=== PATIENT | female | born 1985 | race Caucasian/White ===

== ENCOUNTER 2024-01-13 09:02 | Day surgery (SDC) | payer MEDICAID ==
[~2024-01-13 09:02] MED LIST: Dexamethasone 4 MG/ML SDV ONE; Glycopyrrolate 0.2 MG/ML 5 ML MDV ONE; Neostigmine Methylsulfate 10 MG/10 ML MDV ONE; Ondansetron 4 MG/2 ML SDV ONE; Propofol 200 MG/20 ML SDV ONE; Rocuronium 50 MG/5 ML Vial ONE; Succinylcholine 200 MG/10 ML MDV ONE; fentaNYL 250 MCG/5 ML SDV ONE
[2024-01-13 09:43] LABS: ALANINE AMINOTRANSFERASE,ALT 62 U/L (12-78); ALBUMIN 3.8 g/dL (3.4-5.0); ALKALINE PHOSPHATASE 87 U/L (46-116); ANION GAP 13.6 mmol/L (5.0-14.0); ASPARTATE AMNIOTRANSFERASE,AST 28 U/L (15-37); BILIRUBIN TOTAL 0.5 mg/dL (0.2-1.0); BLOOD UREA NITROGEN,BUN 13 mg/dL (7-18); CALCIUM 9.3 mg/dL (8.5-10.1); CARBON DIOXIDE,CO2 29 mmol/L (21-32); CHLORIDE,CL 100 mmol/L (100-108); CREATININE 0.9 mg/dL (0.6-1.0); EST CRCL DRUG DOSING (CG) 77.79 mL/min; ESTIMATED GFR 83 mL/min (>60); GLUCOSE RANDOM 107 mg/dL (74-106); POTASSIUM,K 3.6 mmol/L (3.6-5.2); PROTEIN TOTAL,TP 7.6 g/dL (6.4-8.2); SODIUM,NA 139 mmol/L (140-148)
[2024-01-13] MEDS: Nozin Nasal Sanitizer NASBOTH ONE (09:45)
[2024-01-13] MEDS: Lactated Ringers 1,000 ML IV SCH (10:11)
[2024-01-13] MEDS ORDERED: Midazolam 1 MG/ML 2 ML SDV ONE (11:22)
[2024-01-13] MEDS: ceFAZolin 2 GM in Premix Bag 1 BAG IV ONE (11:30)
[2024-01-13] MEDS ORDERED: fentaNYL 250 MCG/5 ML SDV ONE ×2 (12:24→13:26)
[2024-01-13] MEDS: Bupivacaine 0.5% 50 ML MDV ONE (12:46)
[2024-01-13] MEDS ORDERED: hydrALAZINE 20 MG/ML SDV ONE (13:09)
[2024-01-13] MEDS ORDERED: Sodium Chloride 0.9% 10 ML ONE (13:09)
[2024-01-13] MEDS ORDERED: Lactated Ringers 1,000 ML ONE (13:17)
[2024-01-13] MEDS: Acetaminophen/oxyCODONE 325-5 MG Tab PO PRN (14:38)
== END 2024-01-13 15:33 | disposition home or self-care (01) ==
LOC: JP.SDS 09:02
PROVIDERS: ATTEND Specialist
DX: S83.282A Other tear of lateral meniscus, current injury, left knee, initial encounter (principal); M94.262 Chondromalacia, left knee; E66.9 Obesity, unspecified
CPT/HCPCS: 29881; 36415; 80053; 84703; 85027; A9270; C1713; C1769; J0330; J0360; J0665; J0690; J1100; J2250; J2405; J2704; J2710; J3010; J3490; J7120

== ENCOUNTER 2025-04-07 13:42 | Emergency (ER) | payer MEDICAID ==
[2025-04-07 14:10] LABS: BASOPHILS ABSOLUTE AUTO 0.16 K/uL (0.00-0.10); BASOPHILS PERCENT AUTO 1.5 % (0.1-1.3); EOSINOPHILS ABSOLUTE AUTO 1.28 K/uL (0.00-0.40); EOSINOPHILS PERCENT AUTO 12.4 % (0.0-5.4); IMMATURE GRAN ABSOLUTE AUTO 0.04 K/uL (0.00-0.23); IMMATURE GRAN PERCENT AUTO 0.4 % (0.0-0.7); LYMPHOCYTES ABSOLUTE AUTO 3.47 K/uL (0.8-3.3); LYMPHOCYTES PERCENT AUTO 33.5 % (11.4-47.7); MONOCYTES ABSOLUTE AUTO 0.63 K/uL (0.20-0.90); MONOCYTES PERCENT AUTO 6.1 % (3.3-12.6); NEUTROPHILS ABSOLUTE AUTO 4.78 K/uL (1.0-7.6); NEUTROPHILS PERCENT AUTO 46.1 % (40.0-78.1); PLATELET COUNT,PLT 333 K/uL (130-375); RED BLOOD CELL COUNT 5.08 M/uL (3.77-5.24); WHITE BLOOD CELL COUNT,WBC 10.4 K/uL (3.2-11.0)
[2025-04-07 14:25] LABS: BLOOD UREA NITROGEN,BUN 7.0 mg/dL (7-18); CARBON DIOXIDE,CO2 30.0 mmol/L (21-32); CHLORIDE,CL 102.0 mmol/L (100-108); CREATININE 0.6 mg/dL (0.6-1.0); EST CRCL DRUG DOSING (CG) 109.91 mL/min; ESTIMATED GFR 115.0 mL/min (>60); GLUCOSE RANDOM 102.0 mg/dL (74-106); POTASSIUM,K 4.1 mmol/L (3.6-5.2); SODIUM,NA 137.0 mmol/L (140-148)
[2025-04-07 14:34] LABS: AMPHETAMINES SCREEN, URINE NEGATIVE (NEGATIVE); METHADONE SCREEN, URINE NEGATIVE (NEGATIVE); METHAMPHETAMINES SCREEN, URINE PRESUMPTIVE POSITIVE (NEGATIVE); OXYCODONE SCREEN,URINE NEGATIVE (NEGATIVE); PROPOXYPHENE SCREEN,URINE NEGATIVE (NEGATIVE); THC SCREEN,URINE 50 NG/ML PRESUMPTIVE POSITIVE (NEGATIVE)
== END 2025-04-07 15:20 | disposition home or self-care (01) ==
LOC: JP.ED 13:42
DX: N93.9 Abnormal uterine and vaginal bleeding, unspecified (principal); J45.909 Unspecified asthma, uncomplicated; Z86.16 Personal history of COVID-19; Z90.49 Acquired absence of other specified parts of digestive tract
CPT/HCPCS: 36415; 80048; 80305-QW; 81025; 85025; 99284